=== PATIENT | male | born 1990 | race American Indian/Alaskan Native ===

== ENCOUNTER → 2020-12-18 | Outpatient (CLI) | payer OTHER, BC ==
[~2020-12-18] MED LIST: BUPR100; CRUTCH3 USE; HYDACE5 PO; IBUP600 PO; NAPR500 PO; OXYACE5T PO; PRED10 PO; RANI150 PO; RISP2; RXHYDACE PO; Ultram50 MG PO
== END | disposition home or self-care (01) ==
LOC: LAB SHORT 11:13
DX: L03.114 Cellulitis of left upper limb (principal)
CPT/HCPCS: 87070; 87075; 87077; 87147; 87186; 87205

== ENCOUNTER 2024-06-22 22:10 | Emergency (ER) | payer OTHER ==
[~2024-06-22] VITALS: Ht 188 cm; Wt 82.1 kg
[2024-06-22] MEDS ORDERED: Lactated Ringer's 1,000 ML IV ONE (22:19)
[2024-06-22] MEDS ORDERED: FentaNYL Citrate 50 MCG/ML 2 ML Injection IV ONE (22:25)
[2024-06-22 22:32] LABS: BASOPHILS ABSOLUTE AUTO 0.04 K/mm3 (0.00-0.23); BASOPHILS PERCENT AUTO 1 % (0-2); EOSINOPHILS ABSOLUTE AUTO 0.47 K/mm3 (0.00-0.68); EOSINOPHILS PERCENT AUTO 5 % (0-6); Hematocrit 41.3 % (37.0-53.0); Hemoglobin 14.6 g/dL (13.5-17.5); IMMATURE GRAN ABSOLUTE AUTO 0.02 K/mm3 (0.00-0.10); IMMATURE GRAN PERCENT AUTO 0 % (0-1); LYMPHOCYTES PERCENT AUTO 44 % (21-46); MONOCYTES PERCENT AUTO 8 % (4-13); Mean Corpuscular HGB 29.7 pg (26.0-34.0); Mean Corpuscular HGB Conc 35.4 g/dL (31.5-36.5); Mean Corpuscular Volume 84 fL (80-100); NEUTROPHILS PERCENT AUTO 42 % (41-73); Platelet Count 232 K/mm3 (150-400); RDW Coefficient Variation 12.6 % (11.7-14.2); RDW Standard Deviation 38.4 fL (35.1-46.3); Red Blood Cell Count 4.91 M/mm3 (4.30-5.90); White Blood Cell Count 8.73 K/mm3 (4.00-11.30)
[2024-06-22] MEDS ORDERED: CeFAZolin Sodium 2,000 MG in NS 100 ML IV ONE (22:45)
[2024-06-22] MEDS ORDERED: Lactated Ringer's 1,000 ML IV SCH (22:45)
[2024-06-22 22:52] LABS: Albumin, Blood 3.9 g/dL (3.4-5.0); Albumin/Globulin Ratio 1.3 (0.8-1.8); Bilirubin, Total 1.1 mg/dL (0.1-1.0); Bun/Creatinine Ratio 14.6 (12.0-20.0); Calcium, Blood 8.5 mg/dL (8.5-10.1); Creatinine, Blood 1.03 mg/dL (0.60-1.20); Globulin, Blood 3.1 g/dL (2.2-4.0); International Normalized Ratio 1.01; Potassium, Blood 3.3 mmol/L (3.5-5.5); Prothrombin Time Results 10.8 Sec (9.7-11.5)
[2024-06-22 23:28] VITALS: BP 129/80
[2024-06-23] MEDS ORDERED: FentaNYL Citrate 50 MCG/ML 2 ML Injection ONE (00:22)
[2024-06-23] MEDS ORDERED: FentaNYL Citrate 50 MCG/ML 2 ML Injection IV ONE (00:30)
[2024-06-23] MEDS ORDERED: propofoL 100 ML IV ONE (00:30)
[2024-06-23] MEDS ORDERED: NS 1,000 ML IV ONE (00:36)
[2024-06-23] MEDS ORDERED: Propofol 10mg/ml 20 ml Vial (Procedural) IV SCH (00:50)
[2024-06-23] MEDS ORDERED: Diphth,Pertuss(Acell),Tet Vac 0.5 ML VIAL IM ONE (02:50)
== END 2024-06-23 06:13 | disposition short-term general hospital (02) ==
LOC: ER 22:10
PROVIDERS: Student in an Organized Health Care Education/Training Program
DX: S82.391B Other fracture of lower end of right tibia, initial encounter for open fracture type I or II (principal); S82.831B Other fracture of upper and lower end of right fibula, initial encounter for open fracture type I or II; V89.2XXA Person injured in unspecified motor-vehicle accident, traffic, initial encounter; Z79.899 Other long term (current) drug therapy; F17.200 Nicotine dependence, unspecified, uncomplicated; Z23 Encounter for immunization
CPT/HCPCS: 12001; 27825; 36415; 70450; 71045; 71260; 72125; 72170; 73590; 73620; 74177; 80053; 80320; 83605; 83690; 85025; 85610; 86850; 86900; 86901; 90471; 90715; 99152; 99153; 99285-25; J0690; J2704; J3010; J7030; J7120; Q9967